=== PATIENT | female | born 2000 | race Caucasian/White ===

== ENCOUNTER → 2020-11-03 07:30 | Outpatient (CLI) | payer OTHER, SELFPAY ==
[2020-11-03 08:09] LABS: COVID19 -Nasal RAPID Negative (Negative)
== END ==
PROVIDERS: Visit Provider Physician Assistant
DX: H92.09 Otalgia, unspecified ear (principal); J02.9 Acute pharyngitis, unspecified; R09.81 Nasal congestion; Z20.822 Contact with and (suspected) exposure to COVID-19
CPT/HCPCS: 87635